=== PATIENT | male | born 1970 | race Caucasian/White ===

== ENCOUNTER 2016-10-13 20:40 | Emergency (ER) | payer OTHER ==
[~2016-10-13 20:40] MED LIST: ALBUTEROL17 GM INH; AMOXIL875 MG PO; AMPICILLIN PO; BACTRIM DS TABL1 TA1 PO; KEFLEX500 MG PO; LORTAB 10/500 T1 TAB PO; LORTAB 5/500 TA1 TA2 PO; NO MEDICATIONS; PHENERGAN DM; PREDNISONE PO; TEGRETOL100 MG; TYLENOL/CO12 MG/5 ML PO; VICODIN 5/500 T1 TAB PO
[2016-10-13] MEDS ORDERED: NO MEDICATIONS (20:45)
== END 2016-10-13 20:44 | disposition left against medical advice (07) ==
LOC: SED 20:40
DX: Z53.21 Procedure and treatment not carried out due to patient leaving prior to being seen by health care provider (principal)